=== PATIENT | male | born 2005 | race Caucasian/White ===

== ENCOUNTER 2024-03-09 01:50 | Emergency (ER) | payer MEDICAID, OTHER ==
[2024-03-09 02:08] VITALS: BP 123/72; PULSE 95; RESP 16; TEMP 100.1
[2024-03-09 02:10] VITALS: O2SAT 99
--- NOTE | 2024-03-09 02:10 | ERPHSYRPT ---
- History of Present Illness Time Seen by Provider: 03/09/24 01:56 Source: patient Exam Limitations: no limitations Physician History: 18 years old presented to the ER with complaint of soreness in the throat. Patient was evaluated yesterday at [facility], diagnosed with strep pharyngitis, started on Keflex presented back because of still having soreness in the throat with feeling of swelling. No difficulty breathing. Hurts to swallow. Does have some postnasal drainage. No fever or chills reported. Patient is taking Keflex 500 mg twice a day. Has diffuse erythema with few exudates. Postnasal drip. Lungs clear to auscultation. Since patient has been taking Keflex for only 1 day, does not need to be changed. I would give him a dose of Decadron and recommended continue with Keflex. Recommended taking Tylenol ibuprofen as needed and outpatient follow- up. Discussed signs symptoms of worsening needing return to ER which he seems understanding. Allergies/Adverse Reactions: azithromycin [From Zithromax Z-Gen] Allergy (Verified 02/17/22 14:35) Penicillins Allergy (Verified 02/17/22 14:35) Home Medications: Famotidine [Acid Mine Wirer] 20 mg PO DAILY 02/17/22 [History] Omeprazole 40 mg PO DAILY 02/17/22 [History] Venlafaxine HCl 37.5 mg PO DAILY 02/17/22 [History] - Review of Systems Constitutional: No Symptoms Eyes: No Symptoms Ears, Nose, & Throat: Mouth Swelling, Throat Swelling Respiratory: No Symptoms Cardiac: No Symptoms Abdominal/Gastrointestinal: No Symptoms Musculoskeletal: Myalgias Skin: No Symptoms Neurological: No Symptoms Endocrine: No Symptoms - Past Medical History Pertinent Past Medical History: Yes Neurological History: No Pertinent History ENT History: No Pertinent History Cardiac History: No Pertinent History Respiratory History: No Pertinent History Endocrine Medical History: No Pertinent History Musculoskeletal History: No Pertinent History GI Medical History: GERD History: No Pertinent History Psycho-Social History: Depression Male Reproductive Disorders: No Pertinent History - Past Surgical History Past Surgical History: Yes - Physical Exam General Appearance: no apparent distress, alert Eye Exam: bilateral eye: normal inspection, PERRL, EOMI Ear Exam: bilateral ear: auricle normal, canal normal Nasal Exam: normal inspection Throat Exam: moist mucus membranes, pharynx swelling, pharynx tenderness, tonsillar exudate Neck Exam: normal inspection, non-tender, supple, full range of motion Cardiovascular/Respiratory Exam: normal breath sounds, regular rate/rhythm Neurologic Exam: alert, oriented x 3, cooperative, press assistant II-XII nml as tested Skin Exam: normal color SpO2 Interpretation: normal SpO2: 99 O2 Delivery: Room Air - Progress Progress: unchanged Progress Note: 03/09/24 02:08 18 years old presented to the ER with complaint of soreness in the throat. Patient was evaluated yesterday at [facility], diagnosed with strep pharyngitis, started on Keflex presented back because of still having soreness in the throat with feeling of swelling. No difficulty breathing. Hurts to swallow. Does have some postnasal drainage. No fever or chills reported. Patient is taking Keflex 500 mg twice a day. Has diffuse erythema with few exudates. Postnasal drip. Lungs clear to auscultation. Since patient has been taking Keflex for only 1 day, does not need to be changed. I would give him a dose of Decadron and recommended continue with Keflex. Recommended taking Tylenol ibuprofen as needed and outpatient follow- up. Discussed signs symptoms of worsening needing return to ER which he seems understanding. Counseled pt/family regarding: diagnosis, need for follow-up Medical Desision Making - Diagnostic Testing Diagnostic test were ordered, analyzed, and reviewed by me: No - Risk of complications The pt has a mod risk of morbidity or mortality based on: Need for prescription drug management - Departure Departure Disposition: Home Clinical Impression: Strep pharyngitis Condition: Stable Critical Care Time: No Referrals: WENDIE LANCE FNP [Primary Care Provider] - Follow up with PCP 1 day Instructions: Strep Throat (DC) Additional Instructions: Take Tylenol/ibuprofen as needed. Continue with Keflex. Follow-up with primary care for reevaluation. Return to ER for difficulty breathing/swallowing etc.
[2024-03-09] MEDS ORDERED: DECADRON 10MG INJ. ONE (02:13)
[2024-03-09] MEDS: DECADRON 10MG INJ. IM ONE (02:14)
== END 2024-03-09 02:38 | disposition home or self-care (01) ==
LOC: ED 01:50 → MERGE 01:50 → ED 02:38
DX: J02.0 Streptococcal pharyngitis (principal); Z79.899 Other long term (current) drug therapy
CPT/HCPCS: 96372; 99282; J1100

== ENCOUNTER 2024-03-27 23:08 | Emergency (ER) | payer MEDICAID ==
[2024-03-27 23:22] VITALS: RESP 17; TEMP 97.9
[2024-03-27] MEDS ORDERED: Fluor-I-Strip/Ful-Flo OP ONE ×2 (23:39→23:53)
[2024-03-27] MEDS ORDERED: TETRACAINE 0.5% STERI-UNIT SOL OP ONE (23:39)
[2024-03-27 23:46] VITALS: BP 113/73; PULSE 77; O2SAT 98
[2024-03-28] MEDS ORDERED: Ocuflox OPHTHALMIC 5 ML OP ONE (00:10)
[2024-03-28] MEDS: Ocuflox OPHTHALMIC 5 ML OP STA (00:10)
--- NOTE | 2024-03-28 00:13 | ERPHSYRPT ---
- History of Present Illness Time Seen by Provider: 03/27/24 23:45 Source: patient Exam Limitations: no limitations Patient Subjective Stated Complaint: c/o of left eye pain Triage Nursing Assessment: Patient brought to ED by girlfriend with c/o of left eye pain. rates pain 8/10. Patient states that he is around metal at work but doesn't recall getting anything in it. Patient woke up to today with some pain, when he was on his way to work his vision got blurry in the left eye and he drove home. Left eye appears slightly reddened and irritated. PERRLA present right eye acuity 20/70, left eye acuity 20/30, vitals wnl, skin w/n/d, gait steady, pulses normal, pt doesn't appear to be in any distress at this time. Physician History: Foreign body sensation in left eye x 3 days. Patient states vision is a little blurry. No trauma no fever. Patient works with metal. Patient concerned that he may have metal in his involved thigh. Tetanus is up-to-date. Symptoms are mild to moderate in intensity. No specific worsening or improving factors. Patient voices no other complaints or concerns at this time. Portions of this note were created with voice recognition technology. There may be grammatical, spelling, punctuation or sound alike errors Timing/Duration: day(s) (3 days) Location: left eye Severity: mild Apparent Injury: no Associated Symptoms: foreign body sensation Visual Assistive Devices: Glasses Chemical Exposure: No Trauma: No Welding Arc/Tanning Bed Exposure: No Allergies/Adverse Reactions: amoxicillin Allergy (Verified 03/27/24 23:23) azithromycin [From Zithromax Z-Gen] Allergy (Verified 03/27/24 23:23) Penicillins Allergy (Verified 03/27/24 23:23) Home Medications: Omeprazole 40 mg PO DAILY 02/17/22 [History] Hx Tetanus, Diphtheria Vaccination/Date Given: Yes Hx Influenza Vaccination/Date Given: Yes Hx Pneumococcal Vaccination/Date Given: Yes Travel Risk - International Travel Have you traveled outside of the country in past 3 weeks: No - Emerging Infectious Disease Are you exhibiting symptoms associated with any current EIDs: No - Review of Systems Constitutional: No Symptoms, No Fever, No Chills Eyes: No Symptoms Ears, Nose, & Throat: No Symptoms Respiratory: No Symptoms, No Cough, No Dyspnea Cardiac: No Symptoms, No Chest Pain, No Edema, No Syncope Abdominal/Gastrointestinal: No Symptoms, No Abdominal Pain, No Nausea, No Vomiting, No Diarrhea Genitourinary Symptoms: No Symptoms, No Dysuria Musculoskeletal: No Symptoms, No Back Pain, No Neck Pain Skin: No Symptoms, No Rash Neurological: No Symptoms, No Dizziness, No Focal Weakness, No Sensory Changes Psychological: No Symptoms Endocrine: No Symptoms Hematologic/Lymphatic: No Symptoms Immunological/Allergic: No Symptoms All Other Systems: Reviewed and Negative - Past Medical History Pertinent Past Medical History: Yes Neurological History: No Pertinent History ENT History: No Pertinent History Cardiac History: No Pertinent History Respiratory History: No Pertinent History Endocrine Medical History: No Pertinent History Musculoskeletal History: No Pertinent History GI Medical History: GERD History: No Pertinent History Psycho-Social History: Depression Male Reproductive Disorders: No Pertinent History Other Medical History: VERTIGO - Past Surgical History Past Surgical History: Yes - Social History Smoking Status: Never smoker Exposure to second hand smoke: Yes Drug Use: none - Social Determinants of Health Will the patient participate in the screening: Yes Do you worry about a steady place to live?: No Do you have any problems with any of the following?: No known problems In the past 12 months,have you had to go without utilities?: No Transportation Issues: No Has anyone in your support network made you feel unsafe?: No Have you or anyone in your house had to go without enough: No - Nursing Vital Signs Nursing Vital Signs: Initial Vital Signs Temperature 97.9 F 03/27/24 23:14 Pulse Rate 73 03/27/24 23:14 Respiratory Rate 17 03/27/24 23:14 Blood Pressure 129/84 03/27/24 23:14 Pain Scale Pain Intensity 8 - Physical Exam Vision Acuity Degree Evaluation Phase: Corrected Vision Acuity Right Eye: 20/70 Vision Acuity Left Eye: 20/30 Intraocular Pressure (Tonopen): left (Left eye is 20) Eye Exam: bilateral eye: normal inspection, PERRL, EOMI Ears, Nose, Throat Exam: normal ENT inspection, TMs normal, pharynx normal Neck Exam: normal inspection, non-tender, supple, full range of motion Respiratory Exam: normal breath sounds, lungs clear Cardiovascular Exam: regular rate/rhythm, normal peripheral pulses Gastrointestinal Exam: soft, normal bowel sounds, No tenderness Extremity Exam: normal inspection, normal range of motion, pelvis stable Neurologic: alert, oriented x 3, cooperative, manager action II-XII nml as tested Skin Exam: normal color, warm, dry Lymphatic: No adenopathy SpO2 Interpretation: normal SpO2: 98 O2 Delivery: Room Air - Course Nursing assessment & vital signs reviewed: Yes Ordered Tests: Medication Summary Discontinued Medications Generic Name Dose Route Start Last Admin Trade Name Lashawn PRN Reason Stop Dose Admin Fluorescein Sodium Confirm 03/27/24 23:39 Fluorescein Sodium 1 Mg/Strip Strip Administered 03/27/24 23:40 Dose 1 mg OP .STK-MED ONE Fluorescein Sodium Confirm 03/27/24 23:53 Fluorescein Sodium 1 Mg/Strip Strip Administered 03/27/24 23:54 Dose 1 mg OP .STK-MED ONE Ofloxacin 0.5 ml 03/27/24 23:59 Ofloxacin 0.3% Opth 5 Ml Eye Drops OP 03/28/24 00:00 ONCE STA Tetracaine HCl Confirm 03/27/24 23:39 Tetracaine Hcl/Pf 4 Ml Bottle Administered 03/27/24 23:40 Dose 4 ml OP .STK-MED ONE - Progress Progress: improved Progress Note: 18-year-old male presents to our ED with a foreign body sensation left eye. Mclean lamp exam does not show an obvious corneal abrasion or foreign body. There is a significant difference between the right and left eye visual acuity. Patient's eye pressures are upper limits of normal. Patient received ofloxacin ophthalmic antibiotic in the left eye. 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 No indication for further workup will discharge home. Patient voices no other complaints or concerns at this time. Portions of this note were created with voice recognition technology. There may be grammatical, spelling, punctuation or sound alike errors Complexity of problem addressed is moderate acute complicated no critical care time. Complex of data reviewed and analyzed is moderate. Test ordered chest reviewed results analyzed and correlated clinically with history and physical exam. Risk of complication and or risk of morbidity/mortality of patient management is moderate. Patient received a tube of ofloxacin antibiotic to be a pplied 2-3 times daily for 1 week. Vital stable. Time spent to discharge patient approximately 20 minutes. Plan of care established for shared decision making. No social determinants of health present to impede follow-up. Portions of this note were created with voice recognition technology. There may be grammatical, spelling, punctuation or sound alike errors 03/28/24 00:16 Counseled pt/family regarding: diagnosis, need for follow-up - Departure Departure Disposition: Home Clinical Impression: Foreign body sensation, left eye Condition: Stable Critical Care Time: No Referrals: WENDIE LANCE, [employer] [Primary Care Provider] - Follow up/PCP as directed Additional Instructions: Discharge/Care Plan JOON JRLIYA Mccallum was seen on 03/28/24 in the Emergency Room. The patient was counseled regarding Diagnosis,Lab results, Imaging studies, need for follow up and when to return to the Emergency Room. Prescriptions given: Discharge Note I have spoken with the patient and/or caregivers. I have explained the patient's condition, diagnosis and treatment plan based on the information available to me at this time. I have answered the patient's and/or caregiver's questions and addressed any concerns. The patient and/or caregivers have as good understanding of the patient's diagnosis, condition and treatment plan as can be expected at this point. The vital signs have been stable. The patient's condition is stable and appropriate for discharge from the emergency department. The patient will pursue further outpatient evaluation with the primary care physician or other designated or consulting physician as outlined in the discharge instructions. The patient and/or caregivers are agreeable to this plan of care and follow-up instructions have been explained in detail. The patient and/or caregivers have received these instruction. The patient/and or caregivers are aware that any significant change in condition or worsening of symptoms should prompt an immediate return to this or the closest emergency department or call 911.
[2024-03-28] MEDS: TETRACAINE 0.5% STERI-UNIT SOL OP STA (00:19)
[2024-03-28] MEDS: Fluor-I-Strip/Ful-Flo OP ONE (00:19)
[2024-03-28] MEDS: Fluor-I-Strip/Ful-Flo OP STA (00:20)
== END 2024-03-28 00:25 | disposition home or self-care (01) ==
LOC: ED 23:08
DX: H57.8A2 Foreign body sensation, left eye (principal)
CPT/HCPCS: 99281; A9270-GY